=== PATIENT | male | born 1955 | race Caucasian/White ===

== ENCOUNTER 2017-01-29 09:05 | Day surgery (SDC) | payer BC ==
[~2017-01-29 09:05] MED LIST: Buffered Lidocaine 0.9% SYRIN* 5 ML/SYR SYRINGE INTRADERM ONE
[2017-01-29] MEDS ORDERED: ceFAZolin 2 GM PREMIX (*) 50 ML IVPB ONE (09:17)
[2017-01-29] MEDS ORDERED: Bupivacaine 0.25% SDV* 30 ML ONE (10:42)
[2017-01-29] MEDS ORDERED: Lidocaine 0.5%* 50 ML SDV ONE (10:46)
[2017-01-29] MEDS ORDERED: Midazolam* 1 MG/ML 5 ML VIAL (5 MG) ONE (10:53)
[2017-01-29] MEDS ORDERED: fentaNYL* 50 MCG/ML 5 ML VIAL (250 MCG VIAL) ONE (10:53)
[2017-01-29] MEDS ORDERED: oxyCODONE TAB* 5 MG TAB PO PRN (11:21)
[2017-01-29] MEDS ORDERED: fentaNYL* 50 MCG/ML 2 ML VIAL (100 MCG VIAL) IV PRN (11:21)
[2017-01-29 12:26] VITALS: BP 119/72
== END 2017-01-29 12:42 | disposition home or self-care (01) ==
LOC: OREAST 09:05
PROVIDERS: ATTEND Plastic Surgery
DX: M72.0 Palmar fascial fibromatosis [Dupuytren] (principal)
CPT/HCPCS: 88304; J0690; J2250; J3010